=== PATIENT | female | born 1995 | race Caucasian/White ===

== ENCOUNTER 2017-08-28 16:09 | Inpatient (IN) | payer MEDICAID ==
[2017-08-28] MEDS ORDERED: MISOPROSTOL 200 MCG TAB PR (16:30)
[2017-08-28] MEDS ORDERED: BUTORPHANOL 2 MG INJ IV (16:30)
[2017-08-28] MEDS ORDERED: CARBOPROST 250 MCG INJ IM (16:30)
[2017-08-28] MEDS ORDERED: LIDOCAINE 1% (MPF) 30 ML INJ INJ (16:30)
[2017-08-28] MEDS ORDERED: OXYTOCIN 30 UNITS/LR 500 ML IV ×2 (16:30)
[2017-08-28] MEDS ORDERED: IBUPROFEN 600 MG TAB PO (16:30)
[2017-08-28] MEDS ORDERED: METHYLERGONOVINE 0.2 MG INJ IM (16:30)
[2017-08-28] MEDS: LACTATED RINGER'S 1,000 ML IV (17:37)
[2017-08-28] MEDS: AMPICILLIN 2 GM/NS (PMX) 100 ML IV (17:56)
[2017-08-28 18:28] LABS: ADD MAN DIFF? NO
[2017-08-28 18:33] LABS: BASOPHILS % 0.3 % (0.0-2.0); EOSINOPHILS # 0.1 10^3/ul (0.0-0.5); EOSINOPHILS % 0.8 % (0.0-7.0); HEMATOCRIT 34.1 % (37.0-47.0); HEMOGLOBIN 10.5 g/dl (12.0-16.0); LYMPHOCYTES # 2.2 10^3/ul (0.8-2.9); LYMPHOCYTES % 18.8 % (15.0-51.0); MEAN CORPUSCULAR HEMOGLOBIN 23.3 pg (29.0-33.0); MEAN CORPUSCULAR HGB CONC 30.8 g/dl (32.0-37.0); MEAN CORPUSCULAR VOLUME 75.6 fl (82.0-101.0); MEAN PLATELET VOLUME 10.6 fl (7.4-10.4); MONOCYTE # 0.8 10^3/ul (0.3-0.9); NEUTROPHIL # 8.7 10^3/ul (1.6-7.5); NEUTROPHILS % 72.7 % (39.0-77.0); PLATELET COUNT 335 10^3/UL (140-415); RED BLOOD COUNT 4.51 10^6/ul (4.20-5.40); RED CELL DISTRIBUTION WIDTH 18.1 % (11.5-14.5)
[2017-08-28 18:33] LABS: WHITE BLOOD COUNT 11.9 10^3/ul (4.8-10.8)
[2017-08-28 19:09] LABS: INR 0.95; PROTIME 12.8 Sec (11.9-14.9)
[2017-08-28 19:10] LABS: PARTIAL THROMBOPLASTIN TIME 28.6 Sec (25.0-35.0)
[2017-08-28 19:23] LABS: HEPATITIS B SURFACE ANTIGEN NEGATIVE (NEGATIVE)
[2017-08-28] MEDS: AMPICILLIN 1 GM/NS (PMX) 50 ML IV (22:20)
[2017-08-29] MEDS: LACTATED RINGER'S 1,000 ML IV (01:08)
[2017-08-29] MEDS: AMPICILLIN 1 GM/NS (PMX) 50 ML IV ×3 (02:07→08:30)
[2017-08-29] MEDS: CEFAZOLIN 2 GM/50 ML (PMX) 50 ML IVPB (07:00)
[2017-08-29] MEDS ORDERED: CITRIC ACID/SODIUM CITRATE 15 ML CUP (08:10)
[2017-08-29] MEDS ORDERED: ONDANSETRON 4 MG INJ (08:11)
[2017-08-29] MEDS: CITRIC ACID/SODIUM CITRATE 15 ML CUP PO (08:16)
[2017-08-29] MEDS: ONDANSETRON 4 MG INJ IV (08:16)
[2017-08-29] MEDS ORDERED: FENTAnyl 50 MCG/ML VIAL (09:17)
[2017-08-29] MEDS ORDERED: OXYTOCIN 10 UNIT INJ (09:17)
[2017-08-29] MEDS ORDERED: METOCLOPRAMIDE 10 MG INJ (09:17)
[2017-08-29] MEDS ORDERED: PHENYLephrine (100 MCG/ML) 5ML SYG (09:17)
[2017-08-29] MEDS ORDERED: morphine SULFATE/PF (10 MG/10 ML) INJ (09:17)
[2017-08-29] MEDS ORDERED: BUPIVACAINE 0.75%/DEXT (SPINAL) 2 ML INJ (09:20)
[2017-08-29] MEDS ORDERED: NALOXONE (0.4 MG/ML) INJ IV (10:00)
[2017-08-29] MEDS ORDERED: OXYCODONE/ACETAMINOPHEN (5/325) TAB PO ×2 (10:00)
[2017-08-29] MEDS ORDERED: NALBUPHINE HCL (10 MG/1 ML) INJ IV (10:00)
[2017-08-29] MEDS ORDERED: morphine 2 MG INJ IV (10:00)
[2017-08-29] MEDS ORDERED: IPRATROPIUM (NEB) 0.5 MG/2.5 ML AMP HHN (10:00)
[2017-08-29] MEDS ORDERED: DIPHENHYDRAMINE 50 MG INJ IV ×2 (10:00)
[2017-08-29] MEDS ORDERED: TRIMETHOBENZAMIDE 100 MG/ML VIAL IM ×2 (10:00)
[2017-08-29] MEDS ORDERED: ALBUTEROL 0.083% (NEB) 2.5 MG/3 ML AMP HHN (10:00)
[2017-08-29] MEDS ORDERED: HYDROmorphONE (0.2 MG/ML) 10ML SYG IV ×3 (10:00)
[2017-08-29] MEDS ORDERED: EPHEDrine SULFATE 50 MG/5 ML SYG IV (10:00)
[2017-08-29] MEDS ORDERED: hydrALAzine 20 MG INJ IV (10:00)
[2017-08-29] MEDS ORDERED: FENTAnyl 50 MCG/ML VIAL IV ×3 (10:00)
[2017-08-29] MEDS ORDERED: ONDANSETRON 4 MG INJ IV ×2 (10:00)
[2017-08-29] MEDS ORDERED: LABETALOL HCL 20MG INJ IV (10:00)
[2017-08-29] MEDS ORDERED: MIDAZOLAM 1 MG/ML 2 ML INJ IV (10:00)
[2017-08-29] MEDS ORDERED: MEPERIDINE 25 MG INJ IV (10:00)
[2017-08-29] MEDS ORDERED: MIDAZOLAM 1 MG/ML 2 ML INJ (10:03)
[2017-08-29] MEDS: OXYTOCIN 30 UNITS/LR 500 ML IV ×4 (10:34→21:15)
[2017-08-29] MEDS: KETOROLAC 30 MG INJ IV (12:04)
[2017-08-29] MEDS ORDERED: MISOPROSTOL 200 MCG TAB PR (13:30)
[2017-08-29] MEDS ORDERED: METHYLERGONOVINE 0.2 MG INJ IM (13:30)
[2017-08-29] MEDS ORDERED: OXYTOCIN 30 UNITS/LR 500 ML IV (13:30)
[2017-08-29] MEDS ORDERED: CARBOPROST 250 MCG INJ IM (13:30)
[2017-08-29] MEDS ORDERED: HYDROCODONE/APAP (5/325) TAB PO ×2 (13:30)
[2017-08-29] MEDS: morphine 2 MG INJ IV (17:19)
[2017-08-29] MEDS: CEFAZOLIN 1 GM/50 ML (PMX) 50 ML IVPB (17:22)
[2017-08-29 23:14] LABS: RAPID PLASMA REAGIN NONREACTIVE (NR)
[2017-08-30] MEDS: KETOROLAC 30 MG INJ IV ×2 (01:05→08:37)
[2017-08-30] MEDS: OXYTOCIN 30 UNITS/LR 500 ML IV ×2 (01:43→06:03)
[2017-08-30 07:35] LABS: ADD MAN DIFF? NO
[2017-08-30 07:45] LABS: BASOPHILS % 0.3 % (0.0-2.0); EOSINOPHILS # 0.1 10^3/ul (0.0-0.5); EOSINOPHILS % 0.6 % (0.0-7.0); HEMATOCRIT 23.7 % (37.0-47.0); HEMOGLOBIN 7.4 g/dl (12.0-16.0); LYMPHOCYTES # 2.3 10^3/ul (0.8-2.9); LYMPHOCYTES % 19.4 % (15.0-51.0); MEAN CORPUSCULAR HEMOGLOBIN 23.6 pg (29.0-33.0); MEAN CORPUSCULAR HGB CONC 31.2 g/dl (32.0-37.0); MEAN CORPUSCULAR VOLUME 75.7 fl (82.0-101.0); MONOCYTE # 0.9 10^3/ul (0.3-0.9); MONOCYTES % 7.3 % (0.0-11.0); NEUTROPHIL # 8.3 10^3/ul (1.6-7.5); PLATELET COUNT 261 10^3/UL (140-415); RED BLOOD COUNT 3.13 10^6/ul (4.20-5.40); RED CELL DISTRIBUTION WIDTH 18.2 % (11.5-14.5)
[2017-08-30 07:45] LABS: WHITE BLOOD COUNT 11.6 10^3/ul (4.8-10.8)
[2017-08-30] MEDS: SENNA/DOCUSATE NA (8.6MG/50MG) TAB PO ×2 (08:40→21:00)
[2017-08-30] MEDS: OXYCODONE/ACETAMINOPHEN (5/325) TAB PO ×2 (11:46→21:00)
[2017-08-30] MEDS: IBUPROFEN 600 MG TAB PO ×3 (12:00→23:34)
[2017-08-30] MEDS: FERROUS GLUCONATE (EC) 325 MG TAB PO (21:00)
[2017-08-31] MEDS: OXYCODONE/ACETAMINOPHEN (5/325) TAB PO ×6 (01:11→22:26)
[2017-08-31] MEDS: IBUPROFEN 600 MG TAB PO ×3 (05:35→18:00)
[2017-08-31] MEDS: SENNA/DOCUSATE NA (8.6MG/50MG) TAB PO ×2 (09:14→22:26)
[2017-08-31] MEDS: FERROUS GLUCONATE (EC) 325 MG TAB PO ×2 (09:14→22:26)
[2017-09-01] MEDS: IBUPROFEN 600 MG TAB PO ×3 (00:35→12:59)
[2017-09-01] MEDS: NA PHOSPHATE/BIPHOS 133 ML ENEMA PR (00:52)
[2017-09-01] MEDS: OXYCODONE/ACETAMINOPHEN (5/325) TAB PO ×2 (03:23→09:42)
[2017-09-01] MEDS: LANOLIN 7 GM TUBE TOP (08:12)
[2017-09-01] MEDS: SENNA/DOCUSATE NA (8.6MG/50MG) TAB PO (09:42)
[2017-09-01] MEDS: FERROUS GLUCONATE (EC) 325 MG TAB PO (09:42)
[2017-09-01] MEDS: DIPHTH/TET/ACEL PERTUSS (ADULT) 0.5 ML VIAL IM* (09:52)
== END 2017-09-01 13:35 | disposition home or self-care (01) | DRG 766 ==
LOC: L-D 16:09 → PP1 08-29 13:06
PROVIDERS: Obstetrics & Gynecology
PROC: 10D00Z1 Extraction of Products of Conception, Low, Open Approach (ICD-10-PCS; principal; 2017-08-29 08:00)
PROC: 3E033VJ Introduction of Other Hormone into Peripheral Vein, Percutaneous Approach (ICD-10-PCS; 2017-08-29 08:00)
DX: O48.0 Post-term pregnancy (principal); O69.81X0 Labor and delivery complicated by cord around neck, without compression, not applicable or unspecified; Z3A.40 40 weeks gestation of pregnancy; O24.429 Gestational diabetes mellitus in childbirth, unspecified control; Z37.0 Single live birth
CPT/HCPCS: 76815; 76818; 82962; 85025; 85610; 85730; 86592; 86850; 86900; 86901; 87340; 99464